=== PATIENT | female | born 1995 | race African-American/Black ===

== ENCOUNTER 2018-06-28 09:15 | Emergency (ER) | payer OTHER ==
[~2018-06-28] VITALS: Ht 170.2 cm; Wt 195.5 kg
[~2018-06-28 09:15] MED LIST: IBUPROFEN 800800 MG PO; NORCO 5-325 TA1 EACH PO; TRINATE TABLET1 TAB PO; ZOFRAN4 MG PO
[2018-06-28] MEDS ORDERED: MOBIC7.5 MG PO (10:42)
[2018-06-28] MEDS ORDERED: NORFLEX100 MG PO (10:42)
[2018-06-28 10:51] VITALS: BP 152/84
== END 2018-06-28 10:51 | disposition home or self-care (01) ==
LOC: ER 09:15
DX: S13.4XXA Sprain of ligaments of cervical spine, initial encounter (principal); S39.012A Strain of muscle, fascia and tendon of lower back, initial encounter; G44.209 Tension-type headache, unspecified, not intractable; V49.49XA Driver injured in collision with other motor vehicles in traffic accident, initial encounter; Y93.89 Activity, other specified; Y92.410 Unspecified street and highway as the place of occurrence of the external cause; Y99.8 Other external cause status